=== PATIENT | female | born 1995 | race Caucasian/White ===

== ENCOUNTER → 2018-10-05 10:27 | Outpatient (CLI) | payer OTHER, SELFPAY | DX: Z23 Encounter for immunization (principal) | CPT/HCPCS: 90471; 90686 ==

== ENCOUNTER 2019-01-31 19:35 | Emergency (ER) | payer OTHER, SELFPAY ==
[2019-01-31 19:38] VITALS: BP 153/101; PULSE 90; RESP 19; TEMP 37.4; O2SAT 100; BMI 46.0
--- NOTE | 2019-01-31 20:05 | DI.US.S_ITS ---
PROCEDURE: US PERIPH VENOUS LOW EXTREM LT INDICATIONS: ATRAUMATIC SWELLING, LEFT CALF TECHNIQUE: Real-time imaging, as well as color and pulse Doppler interrogation, were performed of the lower extremity deep veins from the inguinal ligament to the popliteal fossa. COMPARISON: None. FINDINGS: The common femoral, femoral and popliteal veins are normally compressible, and free of intraluminal thrombus. Color and pulse Doppler demonstrate normal phasic intraluminal flow. There is normal augmentation response to distal compression maneuver. IMPRESSION: No evidence of deep vein thrombosis involving the left lower extremity. Dictated by: Juli Solitario MD, PhD on 01/31/2019 at 21:20 Approved by: Juli Solitario MD, PhD on 01/31/2019 at 21:20
--- NOTE | 2019-01-31 22:25 | ED.LOWEXIN ---
HPI - Extremity Injury (Lower) General Chief Complaint: Extremity Injury, Lower Stated Complaint: LEFT CALF PAIN SWELLING MUSCLE CRAMPING Time Seen by Provider: 01/31/19 19:43 Source: patient and family Mode of arrival: ambulatory Limitations: no limitations History of Present Illness HPI Narrative: 23-year-old female nonsmoker presents with ongoing lower extremity edema and some pain behind her left knee. She denies any injury nor fever or chills. She has had gradually increasing swelling of her lower extremities and was recently seen at another facility for right leg swelling and pain. She was evaluated with x-ray and sent home. She presents today and now the pain is in her left leg behind her knee. She has increasing pain with ambulation or palpation. She denies any chest pain or shortness of breath. She denies any recent travel or history of blood clots. Onset (ago): day(s) Severity: moderate Relieving factors: rest Exacerbating factors: weight bearing and movement Associated symptoms: swelling and ambulatory Review of Systems Constitutional Denies chills, Denies fever(s), Denies lethargy and Denies weakness Eyes Denies change in vision, Denies eye discharge, Denies irritation and Denies loss of vision ENT Ears, Nose, Mouth, and Throat: Denies change in voice, Denies neck pain and Denies sore throat Cardiovascular Denies chest pain, Reports edema, Denies irregular heart rhythm, Denies lightheadedness, Denies palpitations, Denies dyspnea, Denies dyspnea on exertion and Denies orthopnea Respiratory Denies cough, Denies dyspnea, Denies dyspnea on exertion and Denies wheezing Gastrointestinal Gastrointestinal: Denies abdominal pain, Denies change in bowel habits, Denies diarrhea, Denies nausea and Denies vomiting Genitourinary Denies hematuria, Denies flank pain, Denies urinary incontinence and Denies urinary urgency Musculoskeletal Reports limited range of motion, Reports muscle cramps and Denies neck pain Integumentary/Breasts Denies pruritus, Denies erythema, Denies rash and Denies wounds Neurologic Denies confusion, Denies loss of vision and Denies weakness Psychiatric Denies anxiety, Denies confusion, Denies depression, Denies homicidal ideation and Denies suicidal ideation Endocrine Denies palpitations Hematologic/Lymphatic Denies easy bruising Allergic/Immunologic Denies wheezing [facility] Social History Smoking Status: Former smoker Social History Smoking Status: Former smoker Exam Narrative Exam Narrative: GEN: AOx3 and in mild distress, pleasant, morbidly obese EYES: Pupils are equal, round, and reactive to light and accommodation. Extraoccular muscles are intact bilaterally. There is no subconjunctival hemorrhage or exudate. CHEST: Lungs are clear to auscultation bilaterally and free of wheezes, rales, or rhonchi. Heart rate is regular rhythm, there are no murmurs, clicks, rubs, or gallops. There is no chest wall tenderness. ABD: Abdomen is soft and nontender. There is no guarding or rebound. Bowel sounds are normal in all 4 quadrants. There is no mass or organomegaly. EXT: Full painless ROM of all extremities with no loss of sensation or strength. There is some edema to bilateral lower extremities but no erythema, warmth, induration or fluctuance. SKIN: Warm, pink, and dry. No erythema or rash Initial Vital Signs Initial Vital Signs: Vital Signs Temperature 99.4 F 01/31/19 19:38 Pulse Rate 90 01/31/19 19:38 Respiratory Rate 19 01/31/19 19:38 Blood Pressure 153/101 H 01/31/19 19:38 Pulse Oximetry 100 01/31/19 19:38 Course Orders Ordered: ED Orders 01/31/19 20:05 US periph venous low extrem lt Stat 01/31/19 22:53 Basic Metabolic Panel Stat C-Reactive Protein Quant Stat Complete Blood Count AUTO DIFF Stat Erythrocyte Sedimentation Rate Stat Vital Signs - 8 hr 01/31/19 19:38 02/01/19 00:05 Temperature 99.4 F Pulse Rate 90 83 Respiratory Rate 19 18 Blood Pressure 153/101 H 129/82 Pulse Oximetry 100 99 MDM - Extremity Injury (Lower) Medical Records Attestation: I reviewed the patient's medical records. Lab Data Attestation: I reviewed the patient's lab results. Result diagrams: 01/31/19 22:53 01/31/19 22:53 Lab Results 01/31/19 01/31/19 Range/Units 22:53 22:53 WBC 10.2 (4.5-11.0) X10^3/uL RBC 5.08 (4.0-5.2) X10^6/uL Hgb 13.9 (12.0-16.0) g/dL Hct 41.5 (36-46) % MCV 81.7 (80-100) fL MCH 27.4 (26-34) PG MCHC 33.5 (30-36) % RDW 13.4 (11.6-14.8) % Plt Count 271 (150-400) X10^3/uL Neut % (Auto) 45.2 L (50-75) % Lymph % (Auto) 41.1 H (25-40) % [place] % (Auto) 8.3 (3-14) % Eos % (Auto) 4.2 H (2-4) % Baso % (Auto) 1.2 (0-2) % Neut # (Auto) 4600 (1935-0208) /uL Lymph # (Auto) 4200 (5135-8717) /uL [place] # (Auto) 900 (0-900) /uL Eos # (Auto) 400 (0-450) /uL Baso # (Auto) 100 (0-100) /uL ESR 25 H (0-20) MM/HR Sodium 139 (137-145) mmol/L Potassium 4.2 (3.4-5.1) mmol/L Chloride 105 (98-107) mmol/L Carbon Dioxide 25 (22-32) mmol/L BUN 13 (7-17) mg/dL Creatinine 0.70 (0.52-1.04) mg/dL Estimated GFR > 60.0 (>60) mL/min BUN/Creatinine Ratio 18.6 (6-22) Glucose 86 (70-100) mg/dL Calcium 9.2 (8.4-10.2) mg/dL C-Reactive Protein 2.3 H (<1.0) mg/dL Imaging Data Venous US: Radiologist's impression: [address] [address] Ultrasound Report Signed Patient: GAL CHOU MMR#: [id number] : 1995Acct:[id number] Age/Sex: 23 / FDate of Service: 01/31/19 Loc: ED Accession Number: [id number] Procedure: US periph venous low extrem lt Ordering Provider: Mario Decker D.O. PROCEDURE: US PERIPH VENOUS LOW EXTREM LT INDICATIONS: ATRAUMATIC SWELLING, LEFT CALF TECHNIQUE: Real-time imaging, as well as color and pulse Doppler interrogation, were performed of the lower extremity deep veins from the inguinal ligament to the popliteal fossa. COMPARISON: None. FINDINGS: The common femoral, femoral and popliteal veins are normally compressible, and free of intraluminal thrombus. Color and pulse Doppler demonstrate normal phasic intraluminal flow. There is normal augmentation response to distal compression maneuver. IMPRESSION: No evidence of deep vein thrombosis involving the left lower extremity. Dictated by: Juli Solitario MD, PhD on 01/31/2019 at 21:20 Approved by: Juli Solitario MD, PhD on 01/31/2019 at 21:20 [facility] Narrative Medical decision making narrative: Multiple etiologies for patient's symptoms considered including: [Cellulitis versus DVT versus thrombophlebitis versus gout versus Alvarez's cyst versus other] Patient's symptoms improved or duration of stay with above-stated therapies. Findings and discharge diagnosis discussed with patient/family followed by verbalization of understanding Return precautions discussed with patient/family whom verbalize understanding. Discharge Plan Departure Patient Disposition: Home Clinical Impression: Bilateral leg edema Discharge Date/Time: 02/01/19 00:09 Interventions: ED Discharge Assessment Last Done: 02/01/19 00:05 Instructions: DI for Peripheral Edema -- Bilateral Activity Restrictions/Additional Instructions: *You have been diagnosed with [ bilateral lower extremity edema ] *What to do: *Take medications as directed *Follow up with your primary care provider in 2-3 days, call for an appointment. Let them know you were seen in the Emergency Department and that we ask that you be seen in follow up *Return to ER if you should have any new, worsening or concerning symptoms
[2019-01-31 23:04] LABS: Add Manual Diff / Slide Review NO; Basophils Absolute Auto 100 /uL (0-100); Basophils Percent Auto 1.2 % (0-2); Eosinophils Absolute Auto 400 /uL (0-450); Eosinophils Percent Auto 4.2 % (2-4); Hematocrit 41.5 % (36-46); Hemoglobin 13.9 g/dL (12.0-16.0); Lymphocytes Absolute Auto 4200 /uL (1100-4500); Lymphocytes Percent Auto 41.1 % (25-40); Mean Corpuscular HGB Conc 33.5 % (30-36); Mean Corpuscular Hemoglobin 27.4 PG (26-34); Mean Corpuscular Volume 81.7 fL (80-100); Monocytes Absolute Auto 900 /uL (0-900); Monocytes Percent Auto 8.3 % (3-14); Neutrophils Absolute Auto 4600 /uL (1500-7000); Neutrophils Percent Auto 45.2 % (50-75); Platelet Count 271 X10^3/uL (150-400); Red Blood Cell Count 5.08 X10^6/uL (4.0-5.2); Red Cell Distribution Width 13.4 % (11.6-14.8); White Blood Cell Count 10.2 X10^3/uL (4.5-11.0)
[2019-01-31 23:13] LABS: BUN Creatinine Ratio 18.6 (6-22); Blood Urea Nitrogen 13 mg/dL (7-17); C-Reactive Protein Quant 2.3 mg/dL (<1.0); Calcium 9.2 mg/dL (8.4-10.2); Carbon Dioxide 25 mmol/L (22-32); Chloride 105 mmol/L (98-107); Estimated Glomerular Filt Rate > 60.0 mL/min (>60); Glucose 86 mg/dL (70-100); HEMOLYSIS 40 (0-50); Potassium 4.2 mmol/L (3.4-5.1); Sodium 139 mmol/L (137-145)
[2019-01-31 23:39] LABS: Erythrocyte Sedimentation Rate 25 MM/HR (0-20)
[2019-02-01 00:05] VITALS: BP 129/82; PULSE 83; RESP 18; O2SAT 99
--- NOTE | 2019-02-01 03:36 | ED_ITS ---
HPI - Extremity Injury (Lower) General Chief Complaint: Extremity Injury, Lower Stated Complaint: LEFT CALF PAIN SWELLING MUSCLE CRAMPING Time Seen by Provider: 01/31/19 19:43 Source: patient and family Mode of arrival: ambulatory Limitations: no limitations History of Present Illness HPI Narrative: 23-year-old female nonsmoker presents with ongoing lower extremity edema and some pain behind her left knee. She denies any injury nor fever or chills. She has had gradually increasing swelling of her lower extremi ties and was recently seen at another facility for right leg swelling and pain. She was evaluated with x-ray and sent home. She presents today and now the pain is in her left leg behind her knee. She has increasing pain with ambulation or palpation. She denies any chest pain or shortness of breath. She denies any recent travel or history of blood clots. Onset (ago): day(s) Severity: moderate Relieving factors: rest Exacerbating factors: weight bearing and movement Associated symptoms: swelling and ambulatory Review of Systems Constitutional Denies chills, Denies fever(s), Denies lethargy and Denies weakness Eyes Denies change in vision, Denies eye discharge, Denies irritation and Denies loss of vision ENT Ears, Nose, Mouth, and Throat: Denies change in voice, Denies neck pain and Denies sore throat Cardiovascular Denies chest pain, Reports edema, Denies irregular heart rhythm, Denies lightheadedness, Denies palpitations, Denies dyspnea, Denies dyspnea on exertion and Denies orthopnea Respiratory Denies cough, Denies dyspnea, Denies dyspnea on exertion and Denies wheezing Gastrointestinal Gastrointestinal: Denies abdominal pain, Denies change in bowel habits, Denies diarrhea, Denies nausea and Denies vomiting Genitourinary Denies hematuria, Denies flank pain, Denies urinary incontinence and Denies urinary urgency Musculoskeletal Reports limited range of motion, Reports muscle cramps and Denies neck pain Integumentary/Breasts Denies pruritus, Denies erythema, Denies rash and Denies wounds Neurologic Denies confusion, Denies loss of vision and Denies weakness Psychiatric Denies anxiety, Denies confusion, Denies depression, Denies homicidal ideation and Denies suicidal ideation Endocrine Denies palpitations Hematologic/Lymphatic Denies easy bruising Allergic/Immunologic Denies wheezing [facility] Social History Smoking Status: Former smoker Social History Smoking Status: Former smoker Exam Narrative Exam Narrative: GEN: AOx3 and in mild distress, pleasant, morbidly obese EYES: Pupils are equal, round, and reactive to light and accommodation. Extraoccular muscles are intact bilaterally. There is no subconjunctival hemorrhage or exudate. CHEST: Lungs are clear to auscultation bilaterally and free of wheezes, rales, or rhonchi. Heart rate is regular rhythm, there are no murmurs, clicks, rubs, or gallops. There is no chest wall tenderness. ABD: Abdomen is soft and nontender. There is no guarding or rebound. Bowel sounds are normal in all 4 quadrants. There is no mass or organomegaly. EXT: Full painless ROM of all extremities with no loss of sensation or strength. There is some edema to bilateral lower extremities but no erythema, warmth, induration or fluctuance. SKIN: Warm, pink, and dry. No erythema or rash Initial Vital Signs Initial Vital Signs: Vital Signs Temperature 99.4 F 01/31/19 19:38 Pulse Rate 90 01/31/19 19:38 Respiratory Rate 19 01/31/19 19:38 Blood Pressure 153/101 H 01/31/19 19:38 Pulse Oximetry 100 01/31/19 19:38 Course Orders Ordered: ED Orders 01/31/19 20:05 US periph venous low extrem lt Stat 01/31/19 22:53 Basic Metabolic Panel Stat C-Reactive Protein Quant Stat Complete Blood Count AUTO DIFF Stat Erythrocyte Sedimentation Rate Stat Vital Signs - 8 hr 01/31/19 19:38 02/01/19 00:05 Temperature 99.4 F Pulse Rate 90 83 Respiratory Rate 19 18 Blood Pressure 153/101 H 129/82 Pulse Oximetry 100 99 MDM - Extremity Injury (Lower) Medical Records Attestation: I reviewed the patient's medical records. Lab Data Attestation: I reviewed the patient's lab results. Result diagrams: 01/31/19 22:53 01/31/19 22:53 Lab Results 01/31/19 01/31/19 Range/Units 22:53 22:53 WBC 10.2 (4.5-11.0) X10^3/uL RBC 5.08 (4.0-5.2) X10^6/uL Hgb 13.9 (12.0-16.0) g/dL Hct 41.5 (36-46) % MCV 81.7 (80-100) fL MCH 27.4 (26-34) PG MCHC 33.5 (30-36) % RDW 13.4 (11.6-14.8) % Plt Count 271 (150-400) X10^3/uL Neut % (Auto) 45.2 L (50-75) % Lymph % (Auto) 41.1 H (25-40) % [place] % (Auto) 8.3 (3-14) % Eos % (Auto) 4.2 H (2-4) % Baso % (Auto) 1.2 (0-2) % Neut # (Auto) 4600 (7529-9551) /uL Lymph # (Auto) 4200 (6565-6256) /uL [place] # (Auto) 900 (0-900) /uL Eos # (Auto) 400 (0-450) /uL Baso # (Auto) 100 (0-100) /uL ESR 25 H (0-20) MM/HR Sodium 139 (137-145) mmol/L Potassium 4.2 (3.4-5.1) mmol/L Chloride 105 (98-107) mmol/L Carbon Dioxide 25 (22-32) mmol/L BUN 13 (7-17) mg/dL Creatinine 0.70 (0.52-1.04) mg/dL Estimated GFR > 60.0 (>60) mL/min BUN/Creatinine Ratio 18.6 (6-22) Glucose 86 (70-100) mg/dL Calcium 9.2 (8.4-10.2) mg/dL C-Reactive Protein 2.3 H (<1.0) mg/dL Imaging Data Venous US: Radiologist's impression: [address] [address] Ultrasound Report Signed Patient: GAL CHOU MMR#: [id number] : 1995Acct:[id number] Age/Sex: 23 / FDate of Service: 01/31/19 Loc: ED Accession Number: [id number] Procedure: US periph venous low extrem lt Ordering Provider: Mario Decker D.O. PROCEDURE: US PERIPH VENOUS LOW EXTREM LT INDICATIONS: ATRAUMATIC SWELLING, LEFT CALF TECHNIQUE: Real-time imaging, as well as color and pulse Doppler interrogation, were performed of the lower extremity deep veins from the inguinal ligament to the popliteal fossa. COMPARISON: None. FINDINGS: The common femoral, femoral and popliteal veins are normally compressible, and free of intraluminal thrombus. Color and pulse Doppler demonstrate normal phasic intraluminal flow. There is normal augmentation response to distal compression maneuver. IMPRESSION: No evidence of deep vein thrombosis involving the left lower extremity. Dictated by: Juli Solitario MD, PhD on 01/31/2019 at 21:20 Approved by: Juli Solitario MD, PhD on 01/31/2019 at 21:20 [facility] Narrative Medical decision making narrative: Multiple etiologies for patient's symptoms considered including: [Cellulitis versus DVT versus thrombophlebitis versus gout versus Alvarez's cyst versus other] Patient's symptoms improved or duration of stay with above-stated therapies. Findings and discharge diagnosis discussed with patient/family followed by verbalization of understanding Return precautions discussed with patient/family whom verbalize understanding. Discharge Plan Departure Patient Disposition: Home Clinical Impression: Bilateral leg edema Discharge Date/Time: 02/01/19 00:09 Interventions: ED Discharge Assessment Last Done: 02/01/19 00:05 Instructions: DI for Peripheral Edema -- Bilateral Activity Restrictions/Additional Instructions: *You have been diagnosed with [ bilateral lower extremity edema ] *What to do: *Take medications as directed *Follow up with your primary care provider in 2-3 days, call for an appointment. Let them know you were seen in the Emergency Department and that we ask that you be seen in follow up *Return to ER if you should have any new, worsening or concerning symptoms
== END 2019-02-01 00:09 | disposition home or self-care (01) ==
PROVIDERS: Emergency Provider Emergency Medicine
DX: R60.0 Localized edema (principal); M79.662 Pain in left lower leg
CPT/HCPCS: 36415; 80048; 85025; 85651; 86140; 93971; 99282; 99284

== ENCOUNTER → 2019-09-26 16:29 | Outpatient (CLI) | payer OTHER, SELFPAY | DX: Z23 Encounter for immunization (principal) | CPT/HCPCS: 90471; 90686 ==

== ENCOUNTER → 2020-03-01 16:46 | Outpatient (CLI) | payer OTHER, SELFPAY ==
[2020-03-01 18:22] LABS: Hemoglobin A1C% w Est Avg Glu 5.1 % (4.0-6.0)
== END ==
PROVIDERS: PCP Family Medicine; Referring Provider Obstetrics & Gynecology; Visit Provider Obstetrics & Gynecology
DX: B37.3 Candidiasis of vulva and vagina (principal)
CPT/HCPCS: 36415; 83036

== ENCOUNTER → 2020-05-11 13:10 | Outpatient (CLI) | payer OTHER, SELFPAY ==
--- NOTE | 2020-05-11 | DI.CT.S_ITS ---
PROCEDURE: CT SINUS SCREEN WO CON INDICATIONS: Nasal congestion, headache TECHNIQUE: Noncontrast 3.0 mm axial images acquired from the frontal sinuses to the mid-sella, with coronal and sagittal reformats. For radiation dose reduction, the following was used: automated exposure control, adjustment of mA and/or kV according to patient size. COMPARISON: None. FINDINGS: Image quality: Excellent. Maxillary Sinuses: No bony remodeling or destruction. Sinuses are clear. Ethmoid Air Cells: No bony remodeling or destruction. Sinuses are clear. Sphenoid Sinuses: No bony remodeling or destruction. Sinuses are clear. Frontal Sinuses: No bony remodeling or destruction. Sinuses are clear. Ostiomeatal Complexes: Ostiomeatal complexes are patent. No Jody cells. Miscellaneous: Visualized intra-orbital contents are normal. No brandi bullosa or paradoxical turbinate curvature. There is mild to moderate rightward nasal septal deviation. IMPRESSION: No active paranasal sinus disease is seen. Mild to moderate rightward nasal septal deviation is seen. Dictated by: Guillermo Wood M.D. on 05/11/2020 at 12:32 Approved by: Guillermo Wood M.D. on 05/11/2020 at 12:33
== END ==
PROVIDERS: PCP Family Medicine; Referring Provider Otolaryngology; Visit Provider Otolaryngology
DX: R51 Headache (principal); R09.81 Nasal congestion; J34.2 Deviated nasal septum
CPT/HCPCS: 70486